=== PATIENT | female | born 1980 | race African-American/Black ===

== ENCOUNTER 2024-12-27 23:37 | Emergency (ER) | payer OTHER, SELFPAY ==
[2024-12-27 23:40] VITALS: BP 136/87
[2024-12-27 23:43] LABS: Glucose - Point of Care 73 mg/dl (70-99)
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
[2024-12-28] VITALS (17 sets, daily range): BP systolic 100–129; BP diastolic 68–89
[2024-12-28 00:03] LABS: Hematocrit 32.5 % (37.0-47.0); Hemoglobin 10.4 g/dL (12.0-16.0); Mean Corp Hgb Conc. 32.0 g/dL (33.0-37.0); Mean Corpuscular Volume 92.1 fL (81.0-99.0); Nucleated Red Blood Cells % 0 %; Platelet Count 242 10^3/uL (130-400); Red Cell Dist. Width 14.0 % (11.5-14.5)
[2024-12-28 00:05] LABS: Urine Character Clear (Clear)
[2024-12-28 00:12] LABS: Urine Squamous Cell >30 /LPF (Few)
[2024-12-28 00:14] LABS: Urine Red Blood Cell 16-20 /HPF (0-2)
[2024-12-28 00:14] LABS: INR 1.13; PT 15.0 Sec (11.4-14.6)
[2024-12-28 00:15] LABS: APTT 31.3 Sec (23.4-35.0)
[2024-12-28 00:23] LABS: HCG, Serum Qualitative Screen Negative
[2024-12-28 00:28] LABS: ALT (SGPT) 39 U/L (0-35); AST (SGOT) 38 U/L (14-36); Acetaminophen < 10 ug/ml (10-30); Albumin 3.7 g/dl (3.5-5.0); Alkaline Phosphatase 53 U/L (38-126); Blood Urea Nitrogen 14 mg/dl (7-17); Calcium 8.5 mg/dl (8.4-10.2); Carbon Dioxide 19 mmol/L (22-30); Chloride 112 mmol/L (98-107); Glucose 81 mg/dl (70-99); Potassium 3.2 mmol/L (3.5-5.1); Salicylate < 1.0 mg/dl (2.0-20.0); Sodium 141 mmol/L (135-145); Total Protein 7.0 g/dl (6.3-8.2); eGFR > 60.00
[2024-12-28] MEDS: ATIVAN 1 MG IV ×2 (00:44→00:49)
--- NOTE | 2024-12-28 01:06 | PTCARENOTE ---
P taken to CT and then XR, Pt became uncooperative, rolling herself into the stretcher railing. Unable to reorient or calm. Escorted Pt back to room. Pt became violent, pushing against staff, thrashing on the stretcher and contorting her body. Pt
crying and screaming. at the bedside. PT medicated with ativan twice as ordered. Security at the bedside. Shortly after Pt became more alert and cooperative, answering questions appropriately. returned to the bedside and conversing
with Pt.
== END 2024-12-28 05:16 | disposition home or self-care (01) ==
LOC: EMR 23:37
PROVIDERS: EMERGENCY PHYSICIAN Emergency Medicine
DX: R55 Syncope and collapse (principal); R45.851 Suicidal ideations; F10.129 Alcohol abuse with intoxication, unspecified; R45.1 Restlessness and agitation; R11.10 Vomiting, unspecified; F32.A Depression, unspecified; Y90.6 Blood alcohol level of 120-199 mg/100 ml; F33.9 Major depressive disorder, recurrent, unspecified; D64.9 Anemia, unspecified; E87.6 Hypokalemia; R03.0 Elevated blood-pressure reading, without diagnosis of hypertension; F50.9 Eating disorder, unspecified; Z63.8 Other specified problems related to primary support group; Z91.51 Personal history of suicidal behavior; Z98.84 Bariatric surgery status
CPT/HCPCS: 99291; 96374; 70450; 80053; 80143; 80179; 80306; 81003; 81015; 82077; 82962; 84703; 85025; 85610; 85730; 87077; 87086; 93005